=== PATIENT | female | born 1950 | race Caucasian/White ===

== ENCOUNTER 2022-07-22 11:00 | Outpatient (RCR) | payer MEDICARE, SELFPAY | END 2022-07-22 12:47 | disposition home or self-care (01) | PROVIDERS: PCP Family Medicine; Visit Provider Family Medicine | DX: M25.561 Pain in right knee (principal); Z51.89 Encounter for other specified aftercare | CPT/HCPCS: 97110; 97162 ==

== ENCOUNTER 2024-09-04 06:09 | Day surgery (SDC) | payer MEDICARE, SELFPAY ==
[2024-09-04] VITALS (21 sets, daily range): BP systolic 80–145; BP diastolic 35–87; PULSE 46–59; RESP 12–16; TEMP 35.7–36.9; O2SAT 91–100; BMI 27.5
[2024-09-04] MEDS: LACTATED RINGERS 1000 ML 1,000 ML 100 ML IV ×2 (06:45→09:49)
[2024-09-04] MEDS: SODIUM CHLORIDE 0.9 % (FLUSH) 10 ML SYRINGE IVF (06:52)
[2024-09-04] MEDS: ACETAMINOPHEN 500 MG TABLET 1000 MG PO (07:05)
[2024-09-04] MEDS: OXYCODONE (CR) 10 MG TAB.ER.12H PO (07:05)
--- NOTE | 2024-09-04 07:06 | SUR.PREOP ---
TIME?OUT:?0710 PT/RN/MDA?VERIFICATION?OF?SURGICAL?SITE,?PROCEDURE,?AND?CONSENT OBTAINED?PRIOR?TO?INVASIVE?PROCEDURE.
[2024-09-04] MEDS: MIDAZOLAM HCL 1 MG/ML inj IVP (07:13)
[2024-09-04] MEDS: fentaNYL 100 MCG/2 ML inj IVP (07:13)
--- NOTE | 2024-09-04 07:26 | P.NB_ITS ---
Nerve Block Nerve Block Time Seen by Provider: 07:05 Date Seen: 09/04/24 Type of block requested by surgeon for post-operative analgesia: adductor canal Side: right Time out performed: Yes Verification of patient name: Yes Verification of date of : Yes Site marking: site marked Name of person performing procedure: Stacey Gore Assistants, if any: Stacey Sanchez Continuous monitoring Was continuous monitoring of O2 sat, B/P, athletic monitor, recorded every 15 minutes?: Yes Procedure Checklist: sterile prep, needles and gloves Ultrasound guided. Images saved: Yes Medications given in 5ml increments after negative aspiration: Ropivicaine %: 0.5 mL: 20 Needle gauge: 20 Patient tolerated procedure well: Yes Block Charges Block Charge (with Pro Fee): Sciatic Nerve Use of Ultrasound Machine for Block: Yes- US Guidance/pain block
--- NOTE | 2024-09-04 07:28 | W.PM.NB ---
Nerve Block Nerve Block Time Seen by Provider: 07:05 Date Seen: 09/04/24 Type of block requested by surgeon for post-operative analgesia: geniculars Side: right Time out performed: Yes Verification of patient name: Yes Verification of date of : Yes Site marking: site marked Name of person performing procedure: Stacey Gore Assistants, if any: Stacey Sanchez Continuous monitoring Was continuous monitoring of O2 sat, B/P, national sales trainer, recorded every 15 minutes?: Yes Procedure Checklist: sterile prep, needles and gloves Ultrasound guided. Images saved: Yes Medications given in 5ml increments after negative aspiration: Ropivicaine %: 0.5 mL: 12 Needle gauge: 22 Patient tolerated procedure well: Yes Block Charges Block Charge (with Pro Fee): Genicular Nerve Block Use of Ultrasound Machine for Block: Yes- US Guidance/pain block
[2024-09-04] MEDS: TRANEXAMIC ACID 100 MG/ML INJ 1000 MG IV (07:35)
[2024-09-04] MEDS: CEFAZOLIN 2 GM in 0.9 % SODIUM CHLORIDE Mini-bag 100 ML IVPB (07:35)
--- NOTE | 2024-09-04 07:39 | W.PM.H&PU ---
History & Physical Update History & Physical Update H&P Reviewed and patient assessed: No changes noted
--- NOTE | 2024-09-04 08:52 | PM.ORPRC ---
Procedure Note Date of procedure: 09/04/24 Procedure: PREOPERATIVE DIAGNOSIS: 1. Right knee osteoarthritis, primary, severe POSTOPERATIVE DIAGNOSIS: 1. Right knee osteoarthritis, primary, severe PROCEDURE: 1. Right total knee arthroplasty - subvastus SURGEON: Rm Higuera MD. HOME ATTENDANT: ROYER Armstrong - Of note, a skilled office manager executive assistant was critical for this case to aid in patient positioning, tissue retraction, limb manipulation/positioning, and closure. ANESTHESIA: Spinal anesthetic IMPLANTS: DePuy J&J all cemented TKA - Attune PS femur size 6 narrow Size 5 tibia 5 poly spacer 35mm patella TOURNIQUET: 80 minutes at 250 torr EBL: 50 ml COMPLICATIONS: None evident INDICATIONS: The patient is a pleasant 74-year-old female who has experienced severe right knee pain and difficulty bearing weight. Workup included x-rays which revealed severe osteoarthrosis in the knee. Given the deformity, the dysfunction, and the pain, as well as the failure of nonoperative management, recommendation was made for surgery. FINDINGS: Full-thickness chondral loss diffusely throughout the medial compartment and to a lesser degree patellofemoral and lateral compartments. Degenerative meniscus pathology medial greater than lateral. Moderate to large effusion upon entering the joint. DESCRIPTION OF PROCEDURE: Following a thorough discussion of risks, benefits, and alternatives consent was obtained and the right knee was marked. The patient was brought to the operating room and placed supine on the operating table. Induction of anesthesia was undertaken. 1 g IV Ancef and 1 g tranexamic acid was administered within 1 hr of incision preoperatively. Proper time-out was performed identifying proper patient, site, procedure. The operative extremity was prepped and draped in the appropriate sterile fashion using ChloraPrep after the patient was positioned supine with all bony prominences well padded. A longitudinal, anterior, midline skin incision was made starting approximately 3cm proximal to the superior pole of the patella and advanced distal to the tibial tubercle. A subvastus approach was utilized. A medial subperiosteal sleeve was created with knife, hou elevator and curved osteotome. The retropatellar fatpad was resected and the synovium in the suprapatellar pouch excised to visualize the anterior femoral cortex. Femoral preparation was performed via an intramedullary guide. Step drill allowed access into the femoral canal. The distal cutting guide was placed with 5? of valgus and 10 mm cut on the distal femur. Femur was sized using a anterior referencing guide in 3? of external rotation. This found have a best fit with the sizing noted above. The 4 in 1 cutting block was then placed, and the distal femur shaped accordingly. The box cut was then created and the trial implant inserted to confirm appropriate fit. We turned our attention to the proximal tibia. Extramedullary guide was utilized for cutting with the goal of being 90 degree cut from the mechanical axis of the tibia in the varus/valgus plane utilizing tibial crest as the primary alignment. Initially a 2 mm resection was performed from the medial tibial plateau. Ultimately, balancing was achieved in both flexion and extension in both varus and valgus. The knee was able to achieve full extension as well comfortably. The patella was initially measured and found have a thickness of 20 mm. It was resected back to approximately 14 mm. It was sized to be a best fit with as noted above. This was drilled, trial placed. All trials were placed and found to have an excellent stability and balance. At this stage, trial implants were removed, the knee was thoroughly irrigated with normal saline, and the cement was mixed. After irrigation, the knee was thoroughly dried, and cement placed, with the real tibial and femoral implants placed along with the patella. Trial poly spacer was placed and confirmed to have excellent range of motion and full extension, and the real poly spacer opened and inserted. All extra cement was removed, and a 3 min Betadine soak performed. Finally, a final irrigation round with normal saline was performed. Closure performed with 0 Vicryl and #0 Stratafix for the quad tendon/retinaculum. 2-0 Vicryl for the subcutaneous and 4-0 Stratafix for subcuticular closure. Dressings were applied and the patient was awoken from anesthesia after the tourniquet deflated and transferred the PACU in stable condition. A skilled office manager executive assistant was critical for this case to aid in patient positioning, tissue retraction, bone exposure, limb manipulation/positioning, patient safety, and closure. PLAN: 1. Weight bear as tolerated operative extremity. 2. 23 hr perioperative antibiotics. 3. Ice. 4. PT/OT consults for ambulation assistance/mobility education. 5. Social work consult for discharge planning. 6. DVT prophylaxis with at SCDs and aspirin twice daily.
--- NOTE | 2024-09-04 09:11 | CRLHL7_ITS ---
For Patients: As a result of the Cures Act, medical imaging exams and procedure reports are released immediately into your electronic medical record. You may view this report before your referring provider. If you have questions, please contact your health care provider. Indication: total knee replacement Technique: Two views right knee Findings/Impression: Hardware from a right total knee arthroplasty is in satisfactory position. Bone alignment is normal. No sign of acute fracture. Postop changes are within normal limits. Dictated by Jose Alexander MD @ 09/04/2024 1:14:26 PM (Electronically Signed)
--- NOTE | 2024-09-04 09:26 | P.ANES_ITS ---
Anesthesia Charges Start Date/Time Anesthesia Start Date: 09/04/24 Anesthesia Start Time: 07:28 Stop Date/Time Anesthesia Stop Date: 09/04/24 Anesthesia Stop Time: 09:20 Coding CPT Codes CPT Codes: ANESTH KNEE ARTHROPLASTY - 12343 ([id number]) P2 - PATIENT W/MILD SYST DISEASE, QZ - NAILING MACHINE OPERATOR AUTOMATIC SVC W/O LUNCHROOM FOOD SERVICE SUPERVISOR BY
--- NOTE | 2024-09-04 09:26 | W.ANESCHARGE ---
Anesthesia Charges Start Date/Time Anesthesia Start Date: 09/04/24 Anesthesia Start Time: 07:28 Stop Date/Time Anesthesia Stop Date: 09/04/24 Anesthesia Stop Time: 09:20 Coding CPT Codes CPT Codes: ANESTH KNEE ARTHROPLASTY - 28888 ([id number]) P2 - PATIENT W/MILD SYST DISEASE, QZ - MATHEMATICAL SCIENTIST SVC W/O PORTABLE PINCH RIVETER BY
[2024-09-04] MEDS: OXYCODONE 5 MG TABLET PO (10:44)
--- NOTE | 2024-09-04 12:17 | SUR.PHASEII ---
Patient able to ambulate to the bathroom with gait belt and walker with standby assist. Unable to void, but attempted. Tolerated ambulation well. Ready for PT.
[2024-09-04] MEDS: ONDANSETRON 2 MG/ML inj 4 MG IVP (12:45)
--- NOTE | 2024-09-04 13:05 | SUR.PHASEII ---
Patient reports nausea is better after Zofran. Patient to PT at 1300.
[2024-09-04] MEDS: ACETAMINOPHEN 325 MG TABLET PO (13:46)
== END 2024-09-04 14:00 | disposition home or self-care (01) ==
PROVIDERS: PCP Family Medicine; Visit Provider Orthopaedic Surgery Sports Medicine
PROC: (CPT 27447; principal; 2024-09-04 07:30)
DX: M17.11 Unilateral primary osteoarthritis, right knee (principal); G89.18 Other acute postprocedural pain; I10 Essential (primary) hypertension
CPT/HCPCS: 27447; 01402; 64445; 64454; 73560; 76942; 97110; 97116; 97161; 97530; A9270; C1776; J0690; J1100; J2250; J2371; J2405; J2704; J2795; J3010; J7120

== ENCOUNTER 2024-10-24 13:00 | Outpatient (RCR) | payer MEDICARE, SELFPAY ==
--- NOTE | 2024-09-06 15:25 | PT.OPEX ---
PT [place] Outpatient Eval PT [facility] Outpatient Eval Start: 09/06/24 12:55 Freq: Status: Active Protocol: Document 09/06/24 13:38 NLR (Rec: 09/06/24 15:21 NLR [id number]) E-signed By Elizabet Cunningham DPT Physical Therapy Outpatient Evaluation Insurance Information Recert Due Date 12/05/24 Insurance Name Medicare B,[employer] Medical Diagnosis Z96.651 Presence of right artificial knee joint Treating Diagnosis M25.561 Pain right knee M25.661 Stiffness right knee Imaging Report Information Severe right knee OA. Referring MD Rm Higuera MD Subjective Preferred Name MOIRA Subjective Moira arrives with her [employer] two days p/o R TKA for evaluation. She states she is tired and having pain but feels better than yesterday. She is walking with FWW, can get into and out of bed on her own, has been sleeping ok, having to get up to go to the bathroom during the night but is sleeping in the bed. She is able to get into the house using FWW on steps with a landing. Pain Comments 9/10, incisional and tight - can be sharp (was 10/10 yesterday). Does not to be in any acute distress. Date of Last Physician Visit 09/04/24 Date of Next Physician Visit 09/13/24 Date of Surgery (If applicable) 09/04/24 Current Work Status Retired Occupation Patient is ( [employer]) and retired. Precautions Treatment Precautions/Contraindications 09/04/24 R TKA Weight Bearing Status Weight Bear as Tolerated Therapy Limitations/Systems Review Not Limited Objective Other/Pertinent Objective L knee ROM 0-120 R knee ROM 15-85, Strength grossly 3/5 R leg, moderate non-pitting edema. Surgical dressing in place. RHD GAIT- R antalgic step to pattern using a FWW HOME- rambler with finished basement. Bed and bath main floor - step over tub with grab bars and shower bench. Laundry is in basement. 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 Assessment Assessment/Impression Moira is a 74-year-old female who presents for skilled PT evaluation presenting with right knee pain and stiffness which is consistent with RIGHT TKA (09/04/24) in the setting of R knee OA. Patient is an appropriate candidate for skilled physical therapy to target deficits described above. Skilled PT intervention is necessary to achieve goals as stated. D/C plan and criteria is for patient to achieve the goals as outlined or until max rehab potential is met. Patient was agreeable with plan of care and goals established. Primary Functional Limitations Difficulty walking, difficulty getting on socks and shoes, unable to do stairs. Plan of Care Rehabilitation Potential Good Rehabilitation Potential Comments Patient is otherwise healthy and motivated to improve in order to return to prior level of function. Physical Therapy Goals 1. Patient will be independent with home exercise program as instructed, modified and progressed by physical therapist in order to be independently and actively participating in their rehabilitation and return to prior level of function. Goal to be achieved by 12/03/2024. 2. Patient will demonstrate ability to walk for 30 minutes (s) without significant increase in pain greater than 2/10 to allow patient to be able to safely and independently return to participation in desired level of function with daily activities such grocery shopping, general housekeeping , going to appointments, walking for exercise without pain or difficulty. Goal to be achieved by 12/03/2024. 3. Patient will ascend/descend 2 full flight(s) of stairs with [id number] pattern without significant increase in difficulty or pain over 2/ 10 allowing for safe and independent mobility through their home/work environment. Goal to be achieved by 2024. Coordination/Communication With Referral Source Treatment Plan/Direct Interventions Gait Training,Manual Therapy, Neuromuscular Re-ed,Self-Care/ Home Management,Therapeutic Activities,Therapeutic Exercises Frequency/Duration 2x/week for 5-6 weeks Patient Will Be Discharged From Therapy Completion of LTG(s),Skills Plateau,Independent w/HEP, Independently Progressing Discharge Plan Comments DC with HEP Evaluation Billing Untimed Code Treatment Minutes 20 PT Eval No Charge No Complexity Low Certification Information Initial Certification Date 09/06/24 Ending Certification Date 12/05/24 Provider Signature Required Yes Provider Signature Shows Agreement With POC & Medical Necessity Physician NPI Number Write NPI# Here Physician Comment/Change : Physician Signature & Date Requested Please Sign/Date Here
--- NOTE | 2024-10-24 13:52 | PT.OPDNX ---
PT [place] Outpatient Daily Note PT [facility] Outpatient Daily Note Start: 09/06/24 12:55 Freq: Status: Active Protocol: Document 10/24/24 11:56 NLR (Rec: 10/24/24 13:52 NLR [id number]) E-signed By Elizabet Cunningham DPT PT OP Daily Progress Note Visit Information Note Type Discharge Note Visit Number [id number] Insurance Information Recert Due Date 12/05/24 Insurance Name Medicare B,[employer]are Insurance Primary Provider: Aman Forbes MD [facility] Information/Comments [place] Medical Diagnosis Z96.651 Presence of right artificial knee joint Treating Diagnosis M25.561 Pain right knee M25.661 Stiffness right knee Imaging Report 10/22/24 Xray [place]: Partial lumbarization of S1, age Information indeterminate but chronic appearing mild superior endplate compression fracture of L3 vertebral body, grade 1 anterolisthesis L5 on S1, lower lumbar facet arthropathy, mild OA B hips and SI joints. Demineralization. Referring MD Rm Higuera MD Subjective Preferred Name MOIRA Subjective Moira arrives for follow up from R TKA 09/04/24. She started her Medrol dose pack and the Flexeril yesterday . She has not yet noticed much of a difference and states she is sore, but she is moving quite well. Pain Comments 0-1/10 (was 10/10 at surgery). Back pain started Monday night 8/10 when rolling in bed. She states it is uncomfortable, no apparent distress. Date of Last 09/13/24 Physician Visit Date of Next 10/15/24 Physician Visit Date of Surgery (If 09/04/24 applicable) Precautions Treatment 09/04/24 R TKA Precautions/ Contraindications Weight Bearing Full Weight Bearing Status Home Exercise Home Exercise Finalized HEP today. Comments Access Code: [email or web address] URL: [email or web address] Date: 10/24/2024 Prepared by: Elizabet Cunningham Exercises - Active Straight Leg Raise with Quad Set - 3 x daily - 7 x weekly - 10 reps - 2-3 seconds hold - strength exercise type - Seated Long Arc Quad - 3 x daily - 7 x weekly - 10 reps - 5 seconds hold - range of motion/strength exercise type - Seated Knee Flexion Stretch - 3 x daily - 7 x weekly - 10 reps - 5 seconds hold - range of motion/stretch exercise type - Seated Passive Knee Extension - 3 x daily - 7 x weekly - 1 reps - 5-15 minutes hold - range of motion/ stretch exercise type - Sitting Knee Extension with Resistance - 3 x daily - 7 x weekly - 2 sets - 10 reps - 3-5 second hold - strength exercise type - Seated Hamstring Curl with Anchored Resistance - 3 x daily - 7 x weekly - 2 sets - 10 reps - 3-5 seconds hold - strength exercise type - Seated Hip Abduction with Resistance - 3 x daily - 7 x weekly - 2 sets - 10 reps - 2-3 seconds hold - strength exercise type - Seated March with Resistance - 3 x daily - 7 x weekly - 2 sets - 10 reps - 2-3 second hold - strength exercise type - Controlled Step Up - 3 x daily - 7 x weekly - 2 sets - 10 reps - 2-3 seconds hold - strength exercise type - Achilles Tendon/Calf Stretches - 2 x daily - 7 x weekly - 1-2 reps - 30-60 seconds hold - stretch exercise type - Standing Hamstring Stretch with Step - 2 x daily - 7 x weekly - 2 sets - 10 reps - 2-3 seconds hold - strength exercise type - Standing Terminal Knee Extension at Wall with Ball - 3 x daily - 7 x weekly - 2 sets - 10 reps - 2-3 seconds hold - strength exercise type - Modified Cat Cow on Counter - 1-2 x daily - 7 x weekly - 10 reps - 2-3 seconds hold - strength exercise type - Elephant Trunk Rotation - 1-2 x daily - 7 x weekly - 2 sets - 10 reps - 3-5 seconds hold - mobilization exercise type Objective Other/Pertinent L knee ROM 0-120 Objective R knee ROM 3-120 with OP, Strength grossly 4/5 R leg RHD GAIT- independent, right flexed knee gait HOME- rambler with finished basement. Bed and bath main floor - step over tub with grab bars and shower bench. Laundry is in basement. 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 Patient Instructed Yes in Risks/Benefits Therapeutic Exercise Therapeutic Exercise 20 Minutes (minutes) Therapeutic Exercise - Supine active to active assistive stretches and range : To Restore of motion to R knee to mobilize stiffness incurred Functional Status with lack of movement over the past week - quad sets combined with assisted oscillation into extension able to achieve 4-122 - Recumbent bike seat 5 full revolutions 6 minutes - Standing forward fold table cat cow stretch - Seated thoracic rotation elephant stretch Manual Therapy Techniques Manual Therapy 10 Minutes (minutes) Manual Therapy - Sidelying glute med STM/MFR and R SI oscillation Techniques mobilization Neuromuscular Re-Ed Neuromuscular 15 Reeducation Minutes (minutes) Neuromuscular - Supine R resisted hip extension via MET in 90/90 Reeducation Comments position at 50% effort Treatment Minutes Timed Code Treatment 45 Minutes Total Treatment Time 45 Billing Units Manual Therapy Units 1 Neuromuscular 1 Reeducation Units Therapeutic Exercise 1 Units Assessment/Impression Assessment/ Moira continues to be sore in her back from a sudden Impression onset of muscle spasm and what appears to be R SI dysfunction about 2 weeks ago. She started Medrol dose pack and Flexeril yesterday. She has been avoiding movement, which in turn has resulted in stiffening R knee. Much time has been spent re-mobilizing extension at the knee to 0-5-122. Have added some SI self mobilization. She has an appointment with Dr. Sharp on 11/04/24. At this point she is ready for DC in respect to her knee as long as she doesn't stop doing the HEP again resulting in stiffness into extension. Goals have been achieved and Moira verbalizes understanding of importance of continuing to do HEP. Primary Functional None other than rolling in bed due to SI joint. Limitations Plan of Care Physical Therapy 1. Patient will be independent with home exercise Goals program as instructed, modified and progressed by physical therapist in order to be independently and actively participating in their rehabilitation and return to prior level of function. Goal to be achieved by 12/03/2024. ACHIEVED 2. Patient will demonstrate ability to walk for 30 minutes(s) without significant increase in pain greater than 2/10 to allow patient to be able to safely and independently return to participation in desired level of function with daily activities such grocery shopping , general housekeeping, going to appointments, walking for exercise without pain or difficulty. Goal to be achieved by 12/03/2024. ACHIEVED 3. Patient will ascend/descend 2 full flight(s) of stairs with [id number] pattern without significant increase in difficulty or pain over 2/10 allowing for safe and independent mobility through their home/work environment. Goal to be achieved by 12/03/2024. ACHIEVED Daily Plan of Care Discharge Daily Plan of Care DC with HEP Comments Discharge Note Discharge Summary Moira continues to be sore in her back from a sudden onset of muscle spasm and what appears to be R SI dysfunction about 2 weeks ago. She started Medrol dose pack and Flexeril yesterday. She has been avoiding movement, which in turn has resulted in stiffening R knee. Much time has been spent re-mobilizing extension at the knee to 0-5-122. Have added some SI self mobilization. She has an appointment with Dr. Sharp on 11/04/24. At this point she is ready for DC in respect to her knee as long as she doesn't stop doing the HEP again resulting in stiffness into extension. Goals have been achieved and Moira verbalizes understanding of importance of continuing to do HEP. Date of First Visit 09/06/24 for Therapy Date of Last Visit 10/24/24 for Therapy Initial Primary Difficulty walking, difficulty getting on socks and Functional shoes, unable to do stairs. Limitations Recommendations/ Met All Therapy Goals Reason for Discharge Discharge DC with HEP Instructions Thank You For This Thank you for this physical therapy referral. Discharge Referral is attached. Signature not required. Contact us if you have any questions or concerns by phone at [phone] or by fax at [phone] attn: Elizabet Flores, PT, DPT.
== END 2025-02-21 23:59 | disposition home or self-care (01) ==
PROVIDERS: PCP Family Medicine; Visit Provider Orthopaedic Surgery Sports Medicine
DX: Z47.1 Aftercare following joint replacement surgery (principal); Z96.651 Presence of right artificial knee joint; M25.561 Pain in right knee; Z51.89 Encounter for other specified aftercare
CPT/HCPCS: 97110; 97112; 97116; 97140; 97161; A9270; J1100; J2250; J2371; J2405; J2704; J2795; J3010